=== PATIENT | female | born 1950 | race Caucasian/White ===

== ENCOUNTER → 2016-07-13 | Outpatient (CLI) | payer MEDICARE, BC | LOC: GMAL 10:50 | PROVIDERS: ATTEND Family Medicine | DX: E55.9 Vitamin D deficiency, unspecified (principal) ==

== ENCOUNTER → 2016-12-15 | Outpatient (CLI) | payer MEDICARE, BC ==
--- NOTE | 2016-12-15 14:57 | MAM ---
History: Well woman exam. Date of exam: 12/15/2016 Services provided: Bilateral full field digital screening mammography. CAD, the images were reviewed with R2 computer aided detection. FINDINGS: Glandular tissue is scattered glandular contour. Comparison with 2015 exam. No dominant mass, architectural distortion or clustered microcalcification. IMPRESSION: Benign exam Recommendation: Routine annual mammography BIRAD CATEGORY: 2 BENIGN Electronically signed by: Anel Gaona MD 12/15/2016 2:55 PM CDT Workstation: [id number]
== END ==
LOC: MAMMO 09:54
PROVIDERS: ATTEND Family Medicine
DX: Z12.31 Encounter for screening mammogram for malignant neoplasm of breast (principal)

== ENCOUNTER 2017-06-14 05:52 | Day surgery (SDC) | payer MEDICARE, BC ==
[2017-06-14] MEDS ORDERED: LACTATED RINGERS 1,000 ML ONE (06:10)
[2017-06-14] MEDS ORDERED: MIDAZOLAM INJ 2 MG/2 ML VIAL ONE (09:43)
[2017-06-14] MEDS ORDERED: fentaNYL CITRATE INJ 50 MCG/ML AMP ONE (09:43)
[2017-06-14] MEDS ORDERED: LIDOCAINE 1% 10 ML VIAL INJ ONE (10:00)
[2017-06-14] MEDS ORDERED: PROPOFOL 200 MG/20 ML VIAL IV ONE (10:00)
[2017-06-14 11:24] VITALS: BP 104/75; TEMP 98.8; O2SAT 93
--- NOTE | 2017-06-14 11:39 | OP ---
DATE OF PROCEDURE: 06/14/17 PREOPERATIVE DIAGNOSIS: 1. Family history of colon cancer in her father. The last colonoscopy was in 2011. POSTOPERATIVE DIAGNOSIS: 1. Colonic polyps. 2. Internal and external hemorrhoids. 3. Sigmoid diverticulosis. PROCEDURE: 1. Colonoscopy plus polypectomy. SURGEON: Jeancarlos Reddy MD. COMPLICATIONS: None apparent. BLOOD LOSS: None. MEDICATIONS: Monitored anesthesia care. DESCRIPTION OF PROCEDURE: Informed consent was obtained prior to sedation. The preprocedure cardiopulmonary assessment was satisfactory. The patient was placed in the left lateral decubitus position and was sedated. A perianal exam revealed some small, nonthrombosed external hemorrhoids and skin tags. Digital rectal exam was unremarkable. The tip of the Olympus colonoscope was inserted in the rectum and guided over to the cecum. The cecum was identified by locating the ileocecal valve and appendiceal orifice. Prep was good. The mucosa of the cecum, ascending colon, hepatic flexure, transverse colon, splenic flexure, descending colon and sigmoid colon was closely examined. Direct and retroflexed views of the rectum were obtained. The patient had two cecal polyps, one was about 3 mm in size and removed with a cold snare. The second was about 1 cm in size and sessile and removed with a hot snare. The patient had sigmoid diverticula. She also had a 5 mm distal sigmoid polyp that was removed with a hot snare. On retroflexed of the rectum, there were internal hemorrhoids. The procedure was then terminated. RECOMMENDATIONS: 1. Followup the polyp pathology and we will review that on the phone in about a week. 2. The patient will definitely need a followup colonoscopy within five years due to her family history and her polyps. #[id number] cc: Michael Leiva MD [facility]
== END 2017-06-14 11:30 | disposition home or self-care (01) ==
LOC: AMB 05:52
PROVIDERS: ATTEND Internal Medicine Gastroenterology
DX: Z12.11 Encounter for screening for malignant neoplasm of colon (principal); D12.5 Benign neoplasm of sigmoid colon; D12.0 Benign neoplasm of cecum; K57.30 Diverticulosis of large intestine without perforation or abscess without bleeding; K64.8 Other hemorrhoids; K64.4 Residual hemorrhoidal skin tags; J45.909 Unspecified asthma, uncomplicated; F32.9 Major depressive disorder, single episode, unspecified; M85.80 Other specified disorders of bone density and structure, unspecified site; K21.9 Gastro-esophageal reflux disease without esophagitis; Z80.0 Family history of malignant neoplasm of digestive organs; Z88.2 Allergy status to sulfonamides; Z88.8 Allergy status to other drugs, medicaments and biological substances; Z79.899 Other long term (current) drug therapy
CPT/HCPCS: 00810; 45385; 88305; J2250; J3010; J3490; J7120

== ENCOUNTER → 2017-12-07 | Outpatient (CLI) | payer MEDICARE | LOC: GMAL 11:09 | PROVIDERS: ATTEND Family Medicine | DX: D51.3 Other dietary vitamin B12 deficiency anemia (principal); E55.9 Vitamin D deficiency, unspecified; R53.83 Other fatigue ==

== ENCOUNTER → 2017-12-14 | Outpatient (CLI) | payer MEDICARE | LOC: GMAL 11:41 | PROVIDERS: ATTEND Family Medicine | DX: R53.83 Other fatigue (principal) ==

== ENCOUNTER → 2017-12-27 | Outpatient (CLI) | payer MEDICARE ==
--- NOTE | 2017-12-28 10:37 | MAM ---
EXAM DESCRIPTION: 3D Screening BILATERAL : Digital Mammography. CLINICAL HISTORY: 67 years Female SCREENING . No complaints. No family history breast cancer. Childbirth. Postmenopausal. No HRT. Prior cyst aspiration right breast.. COMPARISON: 2-D digital screening bilateral mammogram 12/15/2016. Report from prior examination also reviewed. TECHNIQUE: Bilateral CC and MLO projection full-field images, 3-D tomosynthesis digital mammographic technique. CAD not utilized. FINDINGS: The breast parenchymal density pattern is: Scattered areas of fibroglandular density. No skin thickening or nipple retraction. Bilateral solitary microcalcifications. No new focal, stellate mass or density, focal asymmetry , and no suspicious microcalcifications bilaterally. Stable mammograms compared to prior study, taking into account differences in mammographic technique. IMPRESSION: BI-RADS CATEGORY: 2 - BENIGN FINDINGS. FOLLOW UP: Routine digital bilateral screening, one year interval from December 2017. Written communication explaining the IMPRESSION and follow-up, will be mailed to the patient and referring health care provider. According to the [employer], yearly mammograms are recommended starting at age 40 and continuing as long as a woman is in good health. Any breast change noted on a breast self-exam should be reported promptly to the patient's healthcare provider. Breast MRI is recommended for women with an approximately 20-25% or greater lifetime risk of breast cancer, including women with a strong family history of breast or ovarian cancer and women who have been treated for Hodgkin's disease. A negative mammographic report should not delay tissue diagnosis in patients with significant clinical history or physical findings. Extremely dense breast tissue limits the sensitivity of digital mammography. Electronically signed by: Eb Estrada MD 12/28/2017 10:35 AM CDT
== END ==
LOC: MAMMO 09:18
PROVIDERS: ATTEND Family Medicine
DX: Z12.31 Encounter for screening mammogram for malignant neoplasm of breast (principal)

== ENCOUNTER 2018-06-20 10:39 | Emergency (ER) | payer MEDICARE ==
[2018-06-20 10:53] VITALS: TEMP 97.3; O2SAT 95
[2018-06-20] MEDS ORDERED: HYDROcodone 5MG/APAP 325MG 1 EA TAB PO ONE (11:03)
--- NOTE | 2018-06-20 11:06 | ED.PDOC ---
History of Present Illness - General Chief Complaint: Trauma Stated Complaint: s/p fall Time Seen by Provider: 06/20/18 11:01 Source: patient - History of Present Illness Initial Comments: SLIPPED ON THE ICE, INJURED HER NOSE AND HER RIGHT KNEE. ALSO C/O PAIN TO THE RIGHT THIGH, WAS UNABLE TO AMBULATE AFTER THE FALL. Timing/Duration: 1/2 hour Severity: moderate Improving Factors: immobilization Worsening Factors: movement Associated Symptoms: other - NOSE BLEED Allergies/Adverse Reactions: Allergies Cefaclor [From Ceclor] Allergy (Verified 06/13/17 13:21) Sulfa Antibiotics Allergy (Verified 06/13/17 13:21) Home Medications: Ambulatory Orders Sertraline HCl [Zoloft] 100 mg PO DAILY 06/13/17 Acetaminophen W/ Codeine [Tylenol W/ CODEINE #3] 1 ea PO Q6HRS #20 06/20/18 Famotidine [Pepcid Tab] 20 mg PO BID #20 tab 06/20/18 Review of Systems - Review of Systems Constitutional: States: other EENTM: States: nose congestion, other - RIGHT NOSTRIL BLEED. Respiratory: States: no symptoms reported Cardiology: States: no symptoms reported Gastrointestinal/Abdominal: States: no symptoms reported Genitourinary: States: no symptoms reported Musculoskeletal: States: joint pain, joint swelling Skin: States: no symptoms reported Neurological: States: no symptoms reported Endocrine: States: no symptoms reported Hematologic/Lymphatic: States: no symptoms reported Past Medical History (General) - Patient Medical History Hx Stroke: No Hx Congestive Heart Failure: No Hx Diabetes: No Hx MRSA: No - Vaccination History Hx Tetanus, Diphtheria Vaccination: Yes - 3-4 years ago Hx Influenza Vaccination: Yes Hx Pneumococcal Vaccination: No - Social History Hx Tobacco Use: Yes Family Medical History - Family History Mother Family History: Unknown Living Status: Unknown Physical Exam - Physical Exam General Appearance: Alert, Well Developed, Well Groomed, Well Hydrated, Well Nourished Eye Exam: bilateral normal Ears, Nose, Throat: other - EDEMA OF THE NOSE, DRIED BLOOD FROM THE RIGHT NOSTRIL, SPECULLUM EXAM REVEALS NO SEPTAL CLOT. Neck: non-tender, full range of motion, supple Respiratory: chest non-tender, lungs clear Cardiovascular/Chest: normal peripheral pulses, regular rate, rhythm Peripheral Pulses: radial,right: 2+, radial,left: 2+ Gastrointestinal/Abdominal: normal bowel sounds, non tender, soft, no organomegaly, no pulsatile mass Rectal Exam: deferred Extremity: normal range of motion, non-tender Neurologic: no motor/sensory deficits, oriented x 3 Skin Exam: normal color Lymphatic: no adenopathy Progress - Results/Orders Results/Orders: THE IMAGING IS REPORTED: TRANSVERSE FRACTURE OF THE RIGHT PATELLA WITH A 8 MM SEPARATION . SOFT TISSUE SWELLING. the case was discussed with dr. schuster. will need surgery. knee imobilizer and f/u in the am. Departure - Departure Clinical Impression: Contusion of nose, initial encounter Patella fracture Qualifiers: Encounter type: initial encounter Fracture type: closed Fracture morphology: transverse Fracture alignment: displaced Laterality: right Qualified Code(s): S82.031A - Displaced transverse fracture of right patella, initial encounter for closed fracture Time of Disposition: 12:41 Disposition: Discharge to Home or Self Care Condition: Good Departure Forms: ED Discharge - Pt. Copy, Patient Portal Self Enrollment Instructions: Patella Fracture (DC) Activity: increase activity as tolerated Referrals: Michael Leiva III, MD [Primary Care Provider] - 1-2 Weeks Prescriptions: Acetaminophen W/ Codeine [Tylenol W/ CODEINE #3] 1 ea PO Q6HRS #20 Famotidine [Pepcid Tab] 20 mg PO BID #20 tab Home Medications: Ambulatory Orders Sertraline HCl [Zoloft] 100 mg PO DAILY 06/13/17 Acetaminophen W/ Codeine [Tylenol W/ CODEINE #3] 1 ea PO Q6HRS #20 06/20/18 Famotidine [Pepcid Tab] 20 mg PO BID #20 tab 06/20/18
--- NOTE | 2018-06-20 11:53 | RAD ---
Two-view NaSal bones. Indication: facial, right knee pain Comparison: None. Impression: No displaced nasal bone fracture identified. Leftward deviation of the osseous nasal septum noted. If high clinical concern for facial fracture, correlation with CT recommended. Electronically signed by: Gray Peter MD 06/20/2018 11:52 AM [facility]
--- NOTE | 2018-06-20 11:53 | RAD ---
Single frontal view pelvis. Two-view right femur. Two-view right knee. Indication: facial, right knee pain Comparison: None. Impression: No acute pelvic fracture identified. Evaluation for fracture is limited given the degree of osteopenia. If high clinical concern for acute fracture, correlation with MRI recommended given its greater sensitivity in the osteopenic patient. If the patient cannot tolerate MRI imaging or more urgent imaging is required, CT could be performed, however it is less sensitive in the osteopenic patient when compared to MRI. Mild bilateral hip osteoarthritis noted. No fracture of the right femur identified. A transverse fracture of the mid patella noted with 8 mm of distraction of the 2 fracture fragments and 4 mm anterior subluxation of the distal fracture fragment. Associated large lipohemarthrosis. Prominent anterior soft tissue swelling superficial to the patella. Electronically signed by: Gray Peter MD 06/20/2018 11:52 AM [facility]
[2018-06-20 13:12] VITALS: BP 125/71
== END 2018-06-20 13:12 | disposition home or self-care (01) ==
LOC: ER 10:39
DX: S82.031A Displaced transverse fracture of right patella, initial encounter for closed fracture (principal); S00.33XA Contusion of nose, initial encounter; M79.651 Pain in right thigh; Z87.891 Personal history of nicotine dependence; W00.0XXA Fall on same level due to ice and snow, initial encounter; Y92.9 Unspecified place or not applicable; Z88.1 Allergy status to other antibiotic agents; Z88.2 Allergy status to sulfonamides

== ENCOUNTER 2018-06-25 05:45 | Day surgery (SDC) | payer MEDICARE ==
--- NOTE | 2018-06-21 11:15 | HP ---
CHIEF COMPLAINT: Right knee pain. HISTORY OF PRESENT ILLNESS: Ms. Grimaldo is a 67-year-old female who fell on 06/20/18. She had the acute onset of pain in the knee. She complains of pain in the knee without radiation or neurologic symptoms. She has been in an immobilizer secondary to a patella fracture which was identified in the Emergency Room. PAST SURGICAL HISTORY: 1. Wrist surgery. MEDICATIONS: 1. Sertraline. 2. Vitamins. 3. Tylenol #3. ALLERGIES: SULFA, CECLOR. CODE STATUS: DNR. IMMUNIZATIONS: Up to date. FAMILY HISTORY: None pertinent to today's complaint. SOCIAL HISTORY: The patient does not drink, smoke or use any illicit drugs. REVIEW OF SYSTEMS: Negative except as indicated in the History of Present Illness. PHYSICAL EXAMINATION: VITAL SIGNS: Blood pressure 138/78. Pulse 74. Height 5'5". Weight 136 pounds. MENTAL STATUS: The patient is awake, alert, and is able to give a good history and participate in the physical. The patient is oriented to person, place and time. SKIN: Normal tone and turgor. MUSCULOSKELETAL: She has pain over the anterior aspect of the knee and has inability to perform straight leg raise. She has intact sensation distally. Skin over the anterior aspect of the patella does appear to be intact without any bruising. She has 5/5 plantar flexion strength. IMAGING: X-rays show a transverse displaced patella fracture. ASSESSMENT: 1. Patella fracture. PLAN: At this point, she needs to have open reduction and internal fixation of her patella. We have discussed the risks, benefits, and alternatives to that and the patient has given informed consent. #[id number] [facility]
--- NOTE | 2018-06-21 11:19 | RAD ---
EXAM DESCRIPTION: Chest,2 Views CLINICAL HISTORY: 67 years Female, pre op COMPARISON: Radiographs the chest dated 12/14/2017. TECHNIQUE: PA and lateral radiographs of the chest were obtained. FINDINGS: Trachea is midline.The cardiomediastinal silhouette is normal in size. The pulmonary vasculature is within normal limits.The lungs are clear with no acute consolidation.No evidence of pleural effusions.No evidence of pneumothorax. IMPRESSION: No acute cardiopulmonary process. Electronically signed by: Yvrose Rutledge MD 06/21/2018 11:18 AM [facility]
[2018-06-25] MEDS ORDERED: LACTATED RINGERS 1,000 ML ONE (05:56)
[2018-06-25] MEDS ORDERED: SODIUM CHL 0.9% 100ML MINI-BAG 100 ML IVPB ONE (05:56)
[2018-06-25] MEDS ORDERED: ceFAZolin SODIUM 1 GM VIAL ONE ×3 (05:56→06:34)
[2018-06-25] MEDS ORDERED: ACETAMINOPHEN IV 1000MG 100 ML ONE (06:24)
[2018-06-25] MEDS ORDERED: MIDAZOLAM INJ 2 MG/2 ML VIAL ONE (06:24)
[2018-06-25] MEDS ORDERED: fentaNYL CITRATE INJ 50 MCG/ML AMP ONE (06:24)
[2018-06-25] MEDS ORDERED: BUPIVACAINE 0.5% 30 ML VIAL INJ ONE (06:24)
[2018-06-25] MEDS ORDERED: BUPIVACAINE LIPOSOME 13.3 MG/ML VIAL INJ ONE ×2 (06:34→07:57)
[2018-06-25] MEDS ORDERED: VANCOMYCIN HCL INJ 1,000 MG VIAL IVPB ONE ×2 (06:34→06:47)
[2018-06-25] MEDS ORDERED: SODIUM CHLORIDE 0.9% 250ML 250 ML ONE (06:48)
[2018-06-25] MEDS ORDERED: HYDROmorphone HCL INJ 2 MG/ML VIAL ONE (08:02)
[2018-06-25] MEDS ORDERED: PROPOFOL 200 MG/20 ML VIAL IV ONE (10:00)
[2018-06-25] MEDS ORDERED: LIDOCAINE 1% 10 ML VIAL INJ ONE (10:00)
[2018-06-25] MEDS ORDERED: raNITIdine HCL INJ 25 MG/ML VIAL IV ONE (10:00)
[2018-06-25] MEDS ORDERED: METOCLOPRAMIDE HCL INJ 10 MG/2 ML VIAL IV ONE (10:00)
[2018-06-25] MEDS ORDERED: DEXAMETHASONE INJ 10 MG/ML VIAL IV ONE (10:00)
[2018-06-25] MEDS ORDERED: LEVALBUTEROL NEBS 1.25 MG/3 ML VIAL NEB ONE (12:09)
[2018-06-25 13:08] VITALS: O2SAT 98
[2018-06-25 14:08] VITALS: BP 140/58; TEMP 98
--- NOTE | 2018-06-25 14:25 | RAD ---
Two-view right knee Indication: s/p orif right knee Comparison: June 20, 2008 Impression: Interval ORIF of the previous noted patellar fracture noted with 2 surgical wires and cerclage wire. Fracture alignment is near anatomic with mild cortical step-off at the central articular surface of the patella. Soft tissue swelling noted. Electronically signed by: Gray Peter MD 06/25/2018 2:24 PM [facility]
--- NOTE | 2018-06-27 08:07 | OP ---
DATE OF PROCEDURE: 06/25/18 PREOPERATIVE DIAGNOSIS: 1. Patella fracture. POSTOPERATIVE DIAGNOSIS: 1. Patella fracture. PROCEDURE: 1. Open reduction and internal fixation of patella. SURGEON: Florentino Patiño MD. POCKETED SPRING MACHINE OPERATOR: Eb Reynolds CST, SA-C. ANESTHESIA: General anesthesia. COMPLICATIONS: None. FINDINGS: Transverse fracture of the distal 1/3 of the patella. INDICATION: Ms. Grimaldo has a history of a fall on the day before presentation to the clinic. She had the acute onset of knee pain at that time. She was placed in a knee immobilizer and sent to us for followup. At this time, Ms. Grimaldo and I have discussed the risks, benefits and alternatives to operative therapy for her patella fracture and she has given informed consent. PROCEDURE: The patient was brought to the Operating Room and placed in supine position. General anesthesia was induced. The patient's leg was sterilely prepped and draped. An anterior incision was made with approach down to the patella. The patella fracture was identified and the hematoma was debrided. Following debridement of the hematoma, provisional reduction was made with tenaculum clamps. The reduction was confirmed under fluoroscopic imaging. Following that, two K-wires were passed from proximal to distal. A [id number] tension band was then used to hold the fracture in reduced position and the tenaculum clamps were removed. Once the tenaculum clamps were removed, the knee was taken through a range of motion and found to be stable in flexion up to 90 degrees. There was no distraction at the fracture site. The K-wires were cut and the tension band was subsequently cut. For extra support, a circumferential cerclage wire was placed around the patella. The wound was very thoroughly irrigated and the rent in both medial and lateral retinacula were repaired. The wound was then closed with a combination of running and interrupted and subcuticular stitches. Sterile dressings were placed. The patient was awoken from anesthesia and taken to Recovery. POSTOPERATIVE PLAN: She will be doing foot-flat weightbearing and will followup with us in two days. She did not want to be admitted at this time for overnight pain control. #[id number] [facility]
== END 2018-06-25 13:00 | disposition home or self-care (01) ==
LOC: AMB 05:45
PROVIDERS: ATTEND Orthopaedic Surgery
DX: S82.031A Displaced transverse fracture of right patella, initial encounter for closed fracture (principal); J45.909 Unspecified asthma, uncomplicated; K21.9 Gastro-esophageal reflux disease without esophagitis; W19.XXXA Unspecified fall, initial encounter; Z88.2 Allergy status to sulfonamides; Z88.8 Allergy status to other drugs, medicaments and biological substances; Z79.899 Other long term (current) drug therapy
CPT/HCPCS: 01392; 27524; 36415; 71046; 73560; 76000; 80048; 80307; 81001; 85025; 87070; 87077; 87086; 87186; 93005; 94640; J0690; J1100; J1170; J2250; J2765; J2780; J3010; J3370; J3490; J7050; J7120; J7614

== ENCOUNTER → 2018-07-19 | Outpatient (CLI) | payer MEDICARE ==
--- NOTE | 2018-07-19 11:21 | RAD ---
EXAM DESCRIPTION: Knee,Right 2 or More Views CLINICAL HISTORY: CLOSED FRACTURE OF PATELLA RIGHT COMPARISON: None. TECHNIQUE: 2 views right FINDINGS: Exam demonstrates wire and pin fusion of a fracture of the right patella alignment is unchanged from the prior exam. There is a small step-off on the articular surface. No joint effusion is observed. IMPRESSION: Wire and pin fusion of the right patellar fracture is observed unchanged the previous exam Electronically signed by: Michael Benedict MD 07/19/2018 11:19 AM [facility]
== END ==
LOC: RAD 08:19
PROVIDERS: ATTEND Orthopaedic Surgery
DX: S82.001D Unspecified fracture of right patella, subsequent encounter for closed fracture with routine healing (principal)

== ENCOUNTER 2018-07-20 05:43 | Inpatient (IN) | payer MEDICARE ==
--- NOTE | 2018-07-19 13:24 | HP ---
CHIEF COMPLAINT: Patella fracture with displaced hardware. HISTORY OF PRESENT ILLNESS: Ms. Grimaldo is a 67-year-old female with a history of a fall with subsequent patella fracture. She underwent ORIF of the patella fracture. While she did initially well, she has unfortunately had some displacement on her followup x-rays. Because the displacement and the hardware issue, we talked about options for her. After discussing the risks, benefits and alternatives to re-fixation, she has given informed consent for that. PAST SURGICAL HISTORY: 1. Wrist surgery. 2. ORIF of patella. MEDICATIONS: 1. Sertraline. 2. Vitamins. 3. Tylenol #3. ALLERGIES: SULFA, CECLOR. CODE STATUS: DNR. IMMUNIZATIONS: Up to date. FAMILY HISTORY: None pertinent to today's complaint. SOCIAL HISTORY: The patient does not drink, smoke or use any illicit drugs. REVIEW OF SYSTEMS: Negative except as indicated in the History of Present Illness. PHYSICAL EXAMINATION: VITAL SIGNS: Blood pressure 130/71. Pulse 69. Height 5'5". Weight 138 pounds. MENTAL STATUS: The patient is awake, alert, and is able to give a good history and participate in the physical. The patient is oriented to person, place and time. SKIN: Normal tone and turgor. MUSCULOSKELETAL: She has a well-healed wound on the anterior aspect of the knee. She does have some stiffness in extension from previous ORIF. There is no erythema or any indication of infectious issues. The entire extremity is warm and well perfused. IMAGING: X-rays show a displacement of the hardware. There has been minimal change in the position of the fracture. ASSESSMENT: 1. Patella fracture. PLAN: At this point, the plan is for open reduction and internal fixation. We have discussed the risks, benefits, and alternatives to that and the patient has given informed consent. #[id number] [facility]
[2018-07-20] MEDS ORDERED: VANCOMYCIN HCL INJ 1,000 MG VIAL IVPB ONE ×2 (06:08→19:53)
[2018-07-20] MEDS ORDERED: SODIUM CHL 0.9% 100ML MINI-BAG 100 ML IVPB ONE (06:08)
[2018-07-20] MEDS ORDERED: LACTATED RINGERS 1,000 ML ONE (06:08)
[2018-07-20] MEDS ORDERED: ceFAZolin SODIUM 1 GM VIAL ONE ×2 (06:09→09:05)
[2018-07-20] MEDS ORDERED: SODIUM CHLORIDE 0.9% 250ML 250 ML ONE ×2 (06:09→19:53)
[2018-07-20] MEDS ORDERED: METOCLOPRAMIDE HCL INJ 10 MG/2 ML VIAL ONE (07:00)
[2018-07-20] MEDS ORDERED: LIDOCAINE 1% 10 ML VIAL INJ ONE (07:00)
[2018-07-20] MEDS ORDERED: ePHEDrine SULF 50 MG/ML ONE (07:00)
[2018-07-20] MEDS ORDERED: DEXAMETHASONE INJ 10 MG/ML VIAL ONE (07:00)
[2018-07-20] MEDS ORDERED: PROPOFOL 200 MG/20 ML VIAL IV ONE (07:00)
[2018-07-20] MEDS ORDERED: SODIUM CHLORIDE 0.9% 50 ML VIAL ONE (07:00)
[2018-07-20] MEDS ORDERED: raNITIdine HCL INJ 25 MG/ML VIAL ONE (07:00)
[2018-07-20] MEDS ORDERED: fentaNYL CITRATE INJ 50 MCG/ML AMP ONE (09:40)
[2018-07-20] MEDS ORDERED: MORPHINE SULF *EPIDURAL* 1 MG/ML VIAL ONE (09:40)
[2018-07-20] MEDS ORDERED: MIDAZOLAM INJ 2 MG/2 ML VIAL ONE (09:40)
[2018-07-20] MEDS ORDERED: ACETAMINOPHEN IV 1000MG 100 ML ONE (10:42)
[2018-07-20] MEDS: BUPIVACAINE 0.5% 30 ML VIAL INJ ONE ×2 (11:36→13:16)
[2018-07-20] MEDS: BUPIVACAINE LIPOSOME 13.3 MG/ML VIAL INJ ONE ×2 (11:37→13:16)
[2018-07-20] MEDS: VANCOMYCIN HCL INJ 1,000 MG VIAL IVPB ONE ×2 (11:38→13:16)
[2018-07-20] MEDS: ceFAZolin SODIUM 1 GM VIAL ONE ×2 (11:38→13:16)
[2018-07-20] MEDS ORDERED: MORPHINE SULFATE INJ 10 MG/ML VIAL IM PRN (13:24)
[2018-07-20] MEDS ORDERED: PROMETHAZINE HCL INJ 12.5 MG in SODIUM CHLORIDE 0.9% 50ML 50 ML IVPB PRN (13:24)
[2018-07-20] MEDS ORDERED: BENZOCAINE-MENTH LOZ (CEPACOL) 1 EA LOZ MT PRN (13:24)
[2018-07-20] MEDS ORDERED: ONDANSETRON INJ 4 MG/2 ML VIAL IV PRN (13:24)
[2018-07-20] MEDS ORDERED: ACETAMINOPHEN 500 MG TAB PO PRN (13:24)
[2018-07-20] MEDS ORDERED: TEMAZEPAM 15 MG CAP PO PRN (13:24)
[2018-07-20] MEDS ORDERED: ACETAMINOPHEN 325 MG TAB PO PRN (13:24)
[2018-07-20] MEDS ORDERED: BISACODYL SUPPOSITORY 10 MG PR PRN (13:24)
[2018-07-20] MEDS ORDERED: PROMETHAZINE HCL INJ 25 MG in SODIUM CHLORIDE 0.9% 50ML 50 ML IVPB PRN (13:24)
[2018-07-20] MEDS ORDERED: MORPHINE SULFATE INJ 10 MG/ML VIAL IV PRN (13:24)
[2018-07-20] MEDS ORDERED: CYCLOBENZAPRINE HCL 10 MG TAB PO PRN (13:24)
[2018-07-20] MEDS ORDERED: DEX 5% W/NACL 0.45% 1000ML 1,000 ML IVS PRN (13:24)
[2018-07-20] MEDS ORDERED: MAGNESIUM HYDROXIDE 30 ML UD PO PRN (13:24)
[2018-07-20] MEDS ORDERED: ZOLPIDEM TARTRATE 5 MG TAB PO PRN (13:24)
[2018-07-20] MEDS ORDERED: NALOXONE HCL INJ 0.4 MG/ML VIAL IV PRN (13:24)
[2018-07-20] MEDS ORDERED: SODIUM CHLORIDE 0.9% (FLUSH) 10 ML SYG IV PRN (13:24)
[2018-07-20] MEDS ORDERED: traMADol HCL 50 MG TAB PO PRN (13:24)
[2018-07-20] MEDS ORDERED: ALUMINUM & MAGNESIUM HYDROXIDE 30 ML UD PO PRN (13:24)
[2018-07-20] MEDS ORDERED: IV SET AND CAP CHANGE INJ INJ SCH (13:30)
[2018-07-20] MEDS ORDERED: MORPHINE PCA 1 MG/ML 100 ML BAG IVPB SCH (13:30)
[2018-07-20] MEDS ORDERED: ceFAZolin SODIUM 2 GRAMS PREMI 50 ML IVPB ONE ×2 (15:54→19:53)
[2018-07-20] MEDS: CELECOXIB 100 MG CAP PO SCH (17:35)
[2018-07-20] MEDS: ceFAZolin SODIUM 2 GRAMS PREMI 2 GM in PREMIX BAG 1 BAG IVPB SCH (17:35)
[2018-07-20] MEDS ORDERED: ENOXAPARIN SODIUM 30 MG/0.3 ML SYG SUBCU ONE (19:53)
[2018-07-20] MEDS: DOCUSATE CALCIUM 240 MG CAP PO SCH (20:16)
[2018-07-20] MEDS: VANCOMYCIN HCL INJ 1,000 MG in SODIUM CHLORIDE 0.9% 250ML 250 ML IVPB SCH (20:20)
[2018-07-20] MEDS: ENOXAPARIN SODIUM 30 MG/0.3 ML SYG SUBCU SCH (22:19)
[2018-07-21] MEDS: ceFAZolin SODIUM 2 GRAMS PREMI 2 GM in PREMIX BAG 1 BAG IVPB SCH ×2 (01:40→11:21)
[2018-07-21] MEDS ORDERED: SODIUM CHLORIDE 0.9% 250ML 250 ML ONE (07:29)
[2018-07-21] MEDS ORDERED: VANCOMYCIN HCL INJ 1,000 MG VIAL IVPB ONE (07:30)
[2018-07-21] MEDS: VANCOMYCIN HCL INJ 1,000 MG in SODIUM CHLORIDE 0.9% 250ML 250 ML IVPB SCH (08:27)
[2018-07-21] MEDS: CELECOXIB 100 MG CAP PO SCH ×2 (08:27→17:04)
[2018-07-21] MEDS: MAGNESIUM OXIDE 400 MG TAB PO SCH (08:31)
[2018-07-21] MEDS: SERTRALINE HCL 50 MG TAB PO SCH (08:32)
[2018-07-21] MEDS ORDERED: ceFAZolin SODIUM 2 GRAMS PREMI 50 ML IVPB ONE (08:50)
[2018-07-21] MEDS: ENOXAPARIN SODIUM 30 MG/0.3 ML SYG SUBCU SCH ×2 (11:22→22:52)
--- NOTE | 2018-07-21 11:36 | CONS ---
DATE OF CONSULTATION: 07/20/18 SUPERVISING PHYSICIAN: Johnny Faye M.D. REASON FOR CONSULTATION: Postoperative patella fracture repair. HISTORY OF PRESENT ILLNESS: This is a 67 year-old female patient who [place] barn [place] 20 and sustained a patellar fracture. At that time she underwent open reduction and internal fixation. Initially she did well but she had some displacement of the hardware on followup x-ray. Because of the displacement and the hardware issues, she requested operative intervention from Dr. Florentino Patiño, orthopedic surgeon. She underwent an open reduction and internal fixation of the right patella. There were no complications intraoperatively and I am seeing the patient in consultation postoperatively. PAST MEDICAL HISTORY: 1. Anxiety and depression. PAST SURGICAL HISTORY: 1. Wrist surgery. 2. Open reduction and internal fixation of the patella. OUTPATIENT MEDICATIONS: 1. Sertraline. ALLERGIES: SULFA AND CEFACLOR. FAMILY HISTORY: Noncontributory. SOCIAL HISTORY: She denies any smoking, ETOH or illicit drug use. REVIEW OF SYSTEMS: Negative except as per History of Present Illness. PHYSICAL EXAMINATION: VITAL SIGNS: Temperature 97.8, heart rate 96, blood pressure 112/64, respiratory rate 18, O2 sat 95% on room air. GENERAL: This is a 67 year-old female patient who is lying in her hospital bed. She is in no acute distress. HEENT: Normocephalic and atraumatic. Pupils are equal and reactive. Oropharynx is clear. NECK: Supple without mass. RESPIRATORY: Essentially clear to auscultation bilaterally. HEART: Regular rate and rhythm. GASTROINTESTINAL: Abdomen is soft, nondistended, non-tender. Bowel sounds are positive. EXTREMITIES: Bilateral pedal pulses are palpable at +2. Dressing to the patient's right knee is dry and intact. NEUROLOGIC: She is awake, alert and oriented times three. LABORATORY: There are no current labs or films to report at this time. IMPRESSION: 1. Revision of an open reduction and internal fixation of her right patella performed by Dr. Florentino Patiño, orthopedic surgeon. Postoperative day #0. 2. Anxiety and depression. PLAN: We will continue present supportive care. It was reported that the patient will be discharged tomorrow after her physical therapy session. At this point, I believe she will be doing her physical therapy over at the [facility]. Orthopedic issues will be per Dr. Florentino Patiño, orthopedic surgeon. I have restarted her home medications. Will follow the patient as needed. #[id number] [facility]TDD
[2018-07-21] MEDS: HYDROcodone 5MG/APAP 325MG 1 EA TAB PO PRN ×3 (12:25→21:28)
--- NOTE | 2018-07-21 15:14 | RAD ---
EXAM DESCRIPTION: Knee,Right 2 or More Views: CR/DR/XR. CLINICAL HISTORY: postop COMPARISON: Postop AP and lateral 06/25/2018 TECHNIQUE/FINDINGS: 2 views. Right knee. IMPRESSION: Wire and screw fixation of displaced patellar fracture. Hardware intact. No bony complications. Stable since the prior study. Soft tissue edema noted superior to patella and anterior to patella and patellar tendon. No abnormal radiodense objects in the soft tissues or joint spaces. Electronically signed by: Eb Estrada MD 07/21/2018 3:12 PM [facility] [[email or web address]]
[2018-07-21] MEDS: DOCUSATE CALCIUM 240 MG CAP PO SCH (20:13)
[2018-07-22] MEDS: HYDROcodone 5MG/APAP 325MG 1 EA TAB PO PRN ×3 (01:46→09:29)
[2018-07-22 07:08] VITALS: TEMP 98.3
[2018-07-22] MEDS ORDERED: SODIUM CHLORIDE 0.9% (FLUSH) 10 ML SYG IV SCH (09:00)
[2018-07-22] MEDS: CELECOXIB 100 MG CAP PO SCH (09:28)
[2018-07-22] MEDS: MAGNESIUM OXIDE 400 MG TAB PO SCH (09:29)
[2018-07-22] MEDS: SERTRALINE HCL 50 MG TAB PO SCH (09:29)
[2018-07-22 10:15] VITALS: BP 127/95; O2SAT 94
--- NOTE | 2018-07-22 10:39 | PN ---
SUPERVISING PHYSICIAN: Cristiano Sifuentes MD DATE: 07/21/18 SUBJECTIVE: The patient has good pain control now on oral [place]. She has had no complaints with anticipation of hopefully being able to discharge tomorrow. She is tolerating her brace that is in place. She is toe-touch weight bearing and is progressing well. OBJECTIVE: VITAL SIGNS: Temperature 98, pulse 69, blood pressure 126/68, respirations 18, saturation 95% on room air. I&O: Negative balance of 160 with 840 in and 1000 out. Weight 65.4 kg. LUNGS: Clear to auscultation. HEART: Regular rate and rhythm. ABDOMEN: Soft, non-tender, positive bowel sounds. EXTREMITIES: Right leg as dressing overlying the right knee and is in a knee immobilizer. Distal pulses are 2+ bilaterally. NEURO: Alert and oriented x 3. LABORATORY: No laboratory to report. MICROBIOLOGY: MRSA surveillance culture pending. RADIOLOGY: No additional radiograph studies. ASSESSMENT: 1. Revision with an open reduction and internal fixation of her right patella performed by Dr. Florentino Patiño, orthopedic surgeon. Postoperative day #1. 2. Anxiety and depression. PLAN: Will continue with physical therapy evaluation with anticipation of discharging on Monday. She [facility] She will be toe-touch only with no flexion or extension of the knee and to remain in the immobilizer. She will need followup with Dr. Patiño who will actually provide her a pain prescription based off assessment tomorrow. Until she can transition to outpatient management, we will continue to monitor and treat as needed. [facility][id number] [facility]
--- NOTE | 2018-07-22 15:00 | PN ---
DATE: 07/21/18 SUBJECTIVE: Ms. Grimaldo is doing well today. Her pain is well controlled. OBJECTIVE: She is afebrile. Vital signs are stable. Dressing is clean, dry and intact. ASSESSMENT: 1. Status post open reduction and internal fixation of patella. PLAN: The plan at this point is for her to continue on with physical therapy. She will likely be discharged tomorrow. #[id number] [facility]TDD
--- NOTE | 2018-07-22 15:12 | PN ---
DATE: 07/22/18 SUBJECTIVE: Ms. Grimaldo subjectively is improved and she is getting adequate pain control with oral medicine. OBJECTIVE: She is afebrile. Vital signs are stable. Wound is clean. There are no signs or symptoms of infection. ASSESSMENT: 1. Status post open reduction and internal fixation of patella. PLAN: The plan at this point is that we are going to discharge her today. She will followup with us in clinic. #[id number] [facility]
--- NOTE | 2018-07-23 08:39 | OP ---
DATE OF PROCEDURE: 07/20/18 PREOPERATIVE DIAGNOSIS: 1. Failed fixation of patella fracture. POSTOPERATIVE DIAGNOSIS: 1. Failed fixation of patella fracture. PROCEDURE: 1. Removal of hardware. 2. Open reduction and internal fixation. SURGEON: Florentino Patiño MD. REPULPING SUPERVISOR: Eb Reynolds CST, SA-C. ANESTHESIA: General anesthesia. COMPLICATIONS: None. FINDINGS: 1. Failure of fixation. 2. Osteoporotic bone. 3. Minimal additional displacement of the fracture. INDICATION: Ms. Grimaldo has a history of a patella fracture which was fixed surgically, but ultimately had failure of the fixation. She presented to the clinic and we discussed options for her. After discussing the risks, benefits and alternatives to operative therapy, she has given informed consent. DESCRIPTION OF PROCEDURE: The patient was brought to the Operating Room and was placed in supine position. General anesthesia was induced. The patient's leg was sterilely prepped and draped. An incision was made in line with the previous incision. Dissection was carried down and the hardware was removed. It was irrigated and a tenaculum was placed to ensure no further displacement of the fracture occurred. Two cannulated screws were placed from proximal to distal. Wires were placed through the cannulated screws and the tension band was placed anteriorly. Following that, the knee was taken through a range of motion. It was found to be stable. The knee was flexed up to approximately 90 degrees without evidence of displacement. Following that, the wound was very thoroughly irrigated and closed in layers with a combination of running and interrupted subcuticular stitches. Sterile dressings were placed. The patient was placed in an immobilizer, awoken from anesthesia and taken to Recovery. POSTOPERATIVE PLAN: She will partial weightbearing. She will be admitted overnight for pain control. #[id number] [facility]
[2018-07-23] MEDS ORDERED: BISACODYL SUPPOSITORY 10 MG PR ONE (21:00)
[2018-07-23] MEDS ORDERED: MAGNESIUM HYDROXIDE 30 ML UD PO ONE (21:00)
--- NOTE | 2018-07-30 18:59 | DS ---
SUPERVISING PHYSICIAN: Cristiano Sifuentes M.D. ADMISSION DIAGNOSIS: 1. Revision of an open reduction and internal fixation of her right patella performed by Dr. Florentino Patiño, orthopedic surgeon. Postoperative day #0. 2. Anxiety and depression. DISCHARGE DIAGNOSIS: 1. Revision of open reduction and internal fixation of right patella performed by Dr. Florentino Patiño, orthopedic surgeon. Postoperative day #2. 2. Anxiety and depression. HOSPITAL COURSE: Ms. Grimaldo was admitted on 07/20/18 as noted above for open reduction and internal fixation of right patella performed by Dr. Florentino Patiño. She had no intraoperative complications. She was having good pain control at discharge. She was toe touch weight only and was in a knee immobilizer. She had no complications postoperatively and was felt clinically stable enough to discharge to continue with outpatient management. PLAN: Ms. Grimaldo was discharged on 07/22/18 with instructions to followup with Dr. Patiño in 2 weeks as scheduled. She was to continue with her home medications. She was instructed to leave her knee immobilizer in place and have no flexion of the right leg and toe touch weight only. Wound care was as per Dr. Patiño's postoperative instructions. She was told to return to the hospital should she have any worsening or concerning symptoms. Diet at discharge was regular diet as tolerated. Activity is as per Physical Therapy. Medications prescribed at discharge included pain management with [place] 5/[address] Florentino Patiño. All other medications prior to discharge were continued as prior to hospitalization. DISPOSITION: The patient is discharged home. Condition on discharge was stable and improved. #[id number] [facility]
== END 2018-07-22 13:30 | disposition home or self-care (01) | DRG 497 ==
LOC: AMB 05:43 → MS 14:55
PROVIDERS: ADMIT Orthopaedic Surgery; ATTEND Nurse Practitioner Family
PROC: 0QPD04Z Removal of Internal Fixation Device from Right Patella, Open Approach (ICD-10-PCS; 2018-07-20)
PROC: 0QSD04Z Reposition Right Patella with Internal Fixation Device, Open Approach (ICD-10-PCS; principal; 2018-07-20 10:42)
DX: T84.126A Displacement of internal fixation device of bone of right lower leg, initial encounter (principal); Y92.9 Unspecified place or not applicable; F41.9 Anxiety disorder, unspecified; F32.9 Major depressive disorder, single episode, unspecified; Z88.2 Allergy status to sulfonamides; Z88.1 Allergy status to other antibiotic agents; Z79.899 Other long term (current) drug therapy; Z66 Do not resuscitate

== ENCOUNTER → 2018-08-09 | Outpatient (CLI) | payer MEDICARE ==
--- NOTE | 2018-08-09 13:00 | RAD ---
EXAM DESCRIPTION: Knee,Right 2 or More Views CLINICAL HISTORY: 67 years Female, UNSP FX RIGHT PATELLA, SUBS FOR CLOS FX W ROUTN HE COMPARISON: Left knee radiographs T1 2018 TECHNIQUE: 2 views of the left knee. IMPRESSION: Redemonstrated wire and screw fixation of a comminuted patellar fracture. There is mild are also reaction within the patella to suggest healing. Mild edema within Hoffa's fat pad and small amount of fluid within the suprapatellar bursa. Probable mild joint space narrowing of the weightbearing knee compartments. Tibial plateau appears intact. Operative changes of the overlying soft tissues have largely resolved. Electronically signed by: Ric Howell MD 08/09/2018 12:56 PM [employer]
== END ==
LOC: RAD 09:40
PROVIDERS: ATTEND Orthopaedic Surgery
DX: S82.001D Unspecified fracture of right patella, subsequent encounter for closed fracture with routine healing (principal)

== ENCOUNTER → 2018-08-23 | Outpatient (CLI) | payer MEDICARE ==
--- NOTE | 2018-08-23 11:10 | RAD ---
Frontal and lateral views of the right knee. Indication: S82.001D Comparison: August 09, 2018 Impression: Prior ORIF of a right patellar fracture redemonstrated with stable fracture alignment and stable appearance of the hardware. No significant progressive union along the fracture plane identified. The fracture is largely united. Cortical step-off of the central articular surface of the patella at the fracture site is stable. Moderate size knee effusion. Millimetric areas of calcification noted within the quadriceps and patellar tendons. No new fracture identified. Electronically signed by: Gray Peter MD 08/23/2018 11:07 AM [facility]
== END ==
LOC: RAD 09:45
PROVIDERS: ATTEND Orthopaedic Surgery
DX: S82.001D Unspecified fracture of right patella, subsequent encounter for closed fracture with routine healing (principal); M25.461 Effusion, right knee

== ENCOUNTER → 2018-09-10 | Outpatient (CLI) | payer MEDICARE ==
--- NOTE | 2018-09-10 12:16 | RAD ---
EXAM DESCRIPTION: Knee,Right 2 or More Views CLINICAL HISTORY: 67 years Female, S82.001D TECHNIQUE: 2 views of the right knee were performed. COMPARISON: 08/23/2018. FINDINGS: The visualized bones appear mildly osteopenic. Surgical fixation of the fracture of the patella is noted with no significant interval healing. Small suprapatellar joint effusion is noted. The soft tissues appear grossly unremarkable. IMPRESSION: Surgical fixation of the fracture of the patella is noted with no significant interval healing. Small suprapatellar joint effusion is noted. Electronically signed by: Yvrose Rutledge MD 09/10/2018 12:13 PM CDT
== END ==
LOC: RAD 09:33
PROVIDERS: ATTEND Orthopaedic Surgery
DX: S82.001D Unspecified fracture of right patella, subsequent encounter for closed fracture with routine healing (principal); Z98.890 Other specified postprocedural states

== ENCOUNTER → 2018-10-04 | Outpatient (CLI) | payer MEDICARE ==
--- NOTE | 2018-10-05 07:34 | RAD ---
EXAM DESCRIPTION: Knee,Right Complete CLINICAL HISTORY: S82.001D COMPARISON: Multiple prior radiographs dating back to June 25, 2018. Impression: 2 views of the right knee. Horizontal fracture of the patella is again seen status post open reduction internal repair with 2 cannulated type screws and several cerclage wires. The fracture line remains although less conspicuous from June 25, 2018 favorable for a degree of healing response. Significant patellar and quadriceps tendon area of soft tissue thickening/attenuation is present. A joint effusion is likely. There is a degree of disuse osteopenia throughout the visualized bones. Electronically signed by: Fernando Marrero MD 10/05/2018 7:31 AM CDT
== END ==
LOC: RAD 09:25
PROVIDERS: ATTEND Orthopaedic Surgery
DX: S82.001D Unspecified fracture of right patella, subsequent encounter for closed fracture with routine healing (principal)

== ENCOUNTER → 2019-01-01 | Outpatient (CLI) | payer MEDICARE | LOC: GMAL 10:53 | PROVIDERS: ATTEND Family Medicine | DX: D51.3 Other dietary vitamin B12 deficiency anemia (principal); E55.9 Vitamin D deficiency, unspecified; E78.49 Other hyperlipidemia; Z79.899 Other long term (current) drug therapy ==

== ENCOUNTER → 2019-01-10 | Outpatient (CLI) | payer MEDICARE ==
--- NOTE | 2019-01-14 16:04 | MAM ---
EXAM DESCRIPTION: 3D Screening BILATERAL : Digital Mammography. CLINICAL HISTORY: 68 years Female SCREEN . No complaints. No personal or family history of breast cancer. Childbirth. Postmenopausal 15+ years. No HRT. Prior benign cyst aspiration left breast. Lifetime risk of developing breast cancer (Tyrer-Cuzick model)(%): 7.7. COMPARISON: Bilateral screening digital breast tomosynthesis 01/10/2019. TECHNIQUE: Bilateral CC and MLO projection full-field images, digital tomosynthesis mammographic technique. Bilateral digital 2-D full-field MLO images. CAD not available for tomosynthesis or 2-D images. FINDINGS: The breast parenchymal density pattern is: Scattered areas of fibroglandular density. No skin thickening or nipple retraction. No new focal, stellate mass or density, focal asymmetry , and no suspicious microcalcifications bilaterally. Stable mammograms compared to prior study. IMPRESSION: BI-RADS CATEGORY: 1 - NEGATIVE FOLLOW UP: Routine digital bilateral screening, one year interval from December 2018. Written communication explaining the findings and follow-up, will be mailed to the patient and referring health care provider. According to the [employer], yearly mammograms are recommended starting at age 40 and continuing as long as a woman is in good health. Any breast change noted on a breast self-exam should be reported promptly to the patient's healthcare provider. Breast MRI is recommended for women with an approximately 20-25% or greater lifetime risk of breast cancer, including women with a strong family history of breast or ovarian cancer and women who have been treated for Hodgkin's disease. A negative mammographic report should not delay tissue diagnosis in patients with significant clinical history or physical findings. Extremely dense breast tissue limits the sensitivity of digital mammography. Electronically signed by: Eb Estrada MD 01/14/2019 4:03 PM CDT
== END ==
LOC: MAMMO 13:00
PROVIDERS: ATTEND Family Medicine
DX: Z12.31 Encounter for screening mammogram for malignant neoplasm of breast (principal)

== ENCOUNTER → 2019-02-22 | Outpatient (CLI) | payer MEDICARE ==
--- NOTE | 2019-02-22 10:42 | RAD ---
EXAM DESCRIPTION: Knee,Right 1 or 2 Views CLINICAL HISTORY: 68 years, Female, CLOSED FRACTURE OF PATELLA COMPARISON: 11/22/2018. TECHNIQUE: Frontal and lateral views of the right knee. FINDINGS/IMPRESSION: Prior right patellar fracture ORIF with interval increase callus formation and decreased lucency of the mid patella fracture (with unchanged mild cortical step-off at the posterior patella). The hardware fixation is unchanged with unchanged fracture of the superior aspect of the interlocking cable. No significant hardware displacement. Mild right knee osteoarthrosis. Interval development of a small to moderate sized right knee effusion. Electronically signed by: Viraj Zuniga DO 02/22/2019 10:40 AM CDT
== END ==
LOC: RAD 09:14
PROVIDERS: ATTEND Orthopaedic Surgery
DX: S82.001D Unspecified fracture of right patella, subsequent encounter for closed fracture with routine healing (principal); M17.11 Unilateral primary osteoarthritis, right knee; Z98.890 Other specified postprocedural states

== ENCOUNTER → 2020-01-23 | Outpatient (CLI) | payer MEDICARE ==
--- NOTE | 2020-01-27 14:51 | MAM ---
EXAM DESCRIPTION: 3D Screening BILATERAL : Digital Mammography. CLINICAL HISTORY: 69 years Female ANNUAL SCREENING no complaints. No family history breast cancer. Menarche age 10. Childbirth age 24. Menopause age 54. No HRT. Cyst aspiration left benign. Lifetime risk of developing breast cancer (Tyrer-Cuzick model)(%): 6.8. COMPARISON: Bilateral screening digital breast tomosynthesis February 2019 and December 2017.. TECHNIQUE: Bilateral CC and MLO projection full-field images, digital tomosynthesis mammographic technique. Bilateral digital 2-D full-field MLO images. and CC images. CAD available for 2-D images. FINDINGS: The breast parenchymal density pattern is: Scattered areas of fibroglandular density. No skin thickening or nipple retraction. No new focal, stellate mass or density, focal asymmetry , and no suspicious microcalcifications bilaterally. Stable mammograms compared to prior study. IMPRESSION: No suspicious or significant imaging findings. BI-RADS CATEGORY: 1 - NEGATIVE RECOMMENDATIONS: FOLLOW UP: Routine digital bilateral screening, one year interval from January 2020. Written communication explaining the findings and follow-up, will be mailed to the patient and referring health care provider. According to the [employer], yearly mammograms are recommended starting at age 40 and continuing as long as a woman is in good health. Any breast change noted on a breast self-exam should be reported promptly to the patient's healthcare provider. Breast MRI is recommended for women with an approximately 20-25% or greater lifetime risk of breast cancer, including women with a strong family history of breast or ovarian cancer and women who have been treated for Hodgkin's disease. A negative mammographic report should not delay tissue diagnosis in patients with significant clinical history or physical findings. Extremely dense breast tissue limits the sensitivity of digital mammography. Electronically signed by: Eb Estrada MD 01/27/2020 2:50 PM CDT
== END ==
LOC: MAMMO 10:00
PROVIDERS: ATTEND Family Medicine
DX: Z12.31 Encounter for screening mammogram for malignant neoplasm of breast (principal)

== ENCOUNTER → 2020-01-28 | Outpatient (CLI) | payer MEDICARE | LOC: GMAL 14:24 | PROVIDERS: ATTEND Family Medicine | DX: D51.3 Other dietary vitamin B12 deficiency anemia (principal); E55.9 Vitamin D deficiency, unspecified; E78.49 Other hyperlipidemia; Z79.899 Other long term (current) drug therapy ==